=== PATIENT | male | born 1965 | race Caucasian/White ===

== ENCOUNTER 2018-10-31 17:43 | Emergency (ER) | payer OTHER ==
[~2018-10-31] VITALS: Ht 182.9 cm; Wt 127.0 kg
[~2018-10-31 17:43] MED LIST: DOXYCYCLINE 10100 MG PO; FLOMAX0.4 MG PO; HYDROCODONE-AP1 EAC6 PO; OSTERA TABLET1 EAC1 PO; POLYMYXIN B/TMP10 ML OP; TRUVADA1 EAC1 PO
[2018-10-31] MEDS ORDERED: PREP (17:51)
[2018-10-31 18:24] LABS: URINE BILIRUBIN NEGATIVE (Negative); URINE BLOOD NEGATIVE (Negative); URINE CLARITY CLEAR; URINE COLOR YELLOW; URINE GLUCOSE-RANDOM NEGATIVE (Negative); URINE KETONES NEGATIVE (Negative); URINE LEUKOCYTES-REFLEX NEGATIVE (Negative); URINE NITRITE-REFLEX NEGATIVE (Negative); URINE PROTEIN NEGATIVE (Negative); URINE SPECIFIC GRAVITY <= 1.005 (1.005-1.030); URINE UROBILINOGEN 0.2 E.U./dl (0.2-1.0)
[2018-10-31 18:30] LABS: ABSOLUTE BASOPHILS 0.1 thou/uL (0.0-0.2); ABSOLUTE EOSINOPHILS 0.4 thou/uL (0.0-0.7); ABSOLUTE LYMPHOCYTES 3.3 thou/uL (0.8-5.3); ABSOLUTE MONOCYTES 0.8 thou/uL (0.0-1.2); ABSOLUTE NEUTROPHILS 3.2 thou/uL (1.6-8.1); BASOPHILS 1.3 %; EOSINOPHILS 4.7 %; HEMATOCRIT 43.7 % (42.0-52.0); HEMOGLOBIN 14.9 gm/dL (14.0-18.0); LYMPHOCYTES 42.4 %; MCH 31.2 pg (26.0-34.0); MCHC 34.1 g/dL (28.0-37.0); MCV 91.5 fL (80.0-100.0); MONOCYTES 10.6 %; MPV 8.2 fl. (7.2-11.1); NUCLEATED RBCS 0 /100WBC; PLATELET COUNT* 205 thou/uL (150-400); RBC 4.78 mil/uL (4.50-6.00); RDW-CV 14.3 % (10.5-14.5); WBC 7.8 thou/uL (4.0-11.0)
[2018-10-31 18:43] VITALS: BP 123/78
[2018-10-31 18:43] LABS: ALBUMIN 3.2 g/dL (3.4-5.0); CALCIUM 8.9 mg/dL (8.5-10.1); CREATININE 1.2 mg/dL (0.6-1.3); TOTAL BILIRUBIN 0.3 mg/dL (<0.1-1.0); TOTAL PROTEIN 7.6 g/dL (6.4-8.2)
--- NOTE | 2018-11-01 13:00 | EKG ---
[place] [address] ELECTROCARDIOGRAM REPORT Name: YANICK QUEZADA Room: [facility]ENTSVirgen#: [id number] Admission: 10/31/18 Attend Phys: Discharge: 10/31/18 Date of : 67 Report #: [id number] THIS REPORT FOR: //name// [facility] ED Test Date: 2018-10-31 Test Time: 17:48:20 Pat Name: YANICK QUEZADA Department: Room: Gender: M Shop Lead: Yannick [place] : 1965 Requested By: Hamida Roberson Order Number: [id number] MD: Viral Lemon Measurements Intervals [place] Rate: 72 P: 53 MA: 150 QRS: -20 QRSD: 108 T: 35 QT: 398 QTc: 436 Interpretive Statements Sinus rhythm Borderline left axis deviation Compared to ECG 03/29/2016 14:40:30 no change Electronically Signed On 11-01-2018 13:00:34 CDT by Viral Lemon [email or web address] <ELECTRONICALLY SIGNED> By: Viral Lemon MD, [facility] 11/01/18 1300 D: [id number] Viral Lemon MD, FACC /EPI
== END 2018-10-31 18:45 | disposition left against medical advice (07) ==
LOC: M.ERS 17:43
PROVIDERS: Personal Emergency Response Attendant
DX: K62.5 Hemorrhage of anus and rectum (principal); R55 Syncope and collapse; N40.0 Benign prostatic hyperplasia without lower urinary tract symptoms; F17.210 Nicotine dependence, cigarettes, uncomplicated; Z85.07 Personal history of malignant neoplasm of pancreas; Z90.49 Acquired absence of other specified parts of digestive tract

== ENCOUNTER 2019-03-19 13:19 | Emergency (ER) | payer OTHER ==
[~2019-03-19] VITALS: Ht 182.9 cm; Wt 129.3 kg
[~2019-03-19 13:19] MED LIST changes: +PREP
[2019-03-19] MEDS ORDERED: LIPITOR10 MG PO (14:01)
[2019-03-19 14:14] LABS: CALCIUM 8.5 mg/dL (8.5-10.1); CREATININE 0.9 mg/dL (0.6-1.3); POTASSIUM 3.6 mmol/L (3.5-5.1)
[2019-03-19] MEDS ORDERED: FLEXERIL PO (14:24)
[2019-03-19] MEDS ORDERED: IBUPROFEN 800800 M1 PO (14:24)
[2019-03-19 14:37] VITALS: BP 123/62
== END 2019-03-19 14:38 | disposition home or self-care (01) ==
LOC: M.ERS 13:19
PROVIDERS: Emergency Medicine Emergency Medical Services
DX: M76.61 Achilles tendinitis, right leg (principal); F17.210 Nicotine dependence, cigarettes, uncomplicated; Z90.49 Acquired absence of other specified parts of digestive tract; Z98.890 Other specified postprocedural states; Z85.07 Personal history of malignant neoplasm of pancreas; Z88.6 Allergy status to analgesic agent; Z88.5 Allergy status to narcotic agent

== ENCOUNTER 2020-12-17 19:41 | Emergency (ER) | payer OTHER ==
[~2020-12-17] VITALS: Ht 182.9 cm; Wt 141.7 kg
[~2020-12-17 19:41] MED LIST changes: +FLEXERIL PO; +IBUPROFEN 800800 M1 PO; +LIPITOR10 MG PO
[2020-12-17] MEDS ORDERED: FLOMAX0.4 MG PO (19:57)
[2020-12-17 20:10] LABS: ABSOLUTE BASOPHILS 0.1 thou/uL (0.0-0.2); ABSOLUTE EOSINOPHILS 0.6 thou/uL (0.0-0.7); ABSOLUTE LYMPHOCYTES 3.9 thou/uL (0.8-5.3); ABSOLUTE MONOCYTES 1.3 thou/uL (0.0-1.2); ABSOLUTE NEUTROPHILS 4.5 thou/uL (1.6-8.1); BASOPHILS 0.8 %; EOSINOPHILS 5.5 %; HEMATOCRIT 41.9 % (42.0-52.0); HEMOGLOBIN 14.3 gm/dL (14.0-18.0); LYMPHOCYTES 37.6 %; MCH 31.7 pg (26.0-34.0); MCHC 34.1 g/dL (28.0-37.0); MCV 92.8 fL (80.0-100.0); MONOCYTES 12.6 %; MPV 8.3 fl. (7.2-11.1); NUCLEATED RBCS 0 /100WBC; PLATELET COUNT* 179 thou/uL (150-400); POLYS 43.5 %; RBC 4.51 mil/uL (4.50-6.00); RDW-CV 14.2 % (10.5-14.5); WBC 10.4 thou/uL (4.0-11.0)
[2020-12-17 20:19] LABS: CALCIUM 8.5 mg/dL (8.5-10.1); CREATININE 0.9 mg/dL (0.6-1.3)
[2020-12-17 20:23] LABS: MAGNESIUM 2.1 mg/dL (1.8-2.4); TOTAL BILIRUBIN 0.7 mg/dL (<0.1-1.0); TOTAL PROTEIN 7.9 g/dL (6.4-8.2)
[2020-12-17 22:06] VITALS: BP 123/70
--- NOTE | 2020-12-18 12:30 | EKG ---
[place] [address] ELECTROCARDIOGRAM REPORT Name: YANICK QUEZADA Room: [facility]#: [id number] Admission: 12/17/20 Attend Phys: Discharge: 12/17/20 Date of : 67 Date of Service: 12/17/201950 Report #: [id number] THIS REPORT FOR: //name// [facility] ED Test Date: 2020-12-17 Test Time: 19:51:01 Pat Name: YANICK TELLESUGHN Department: Room: Gender: Patroller: : 1965 Requested By: Aruna Dee Order Number: [id number] Reading MD: Andrea Hurtado Measurements Intervals [place] Rate: 86 P: 63 [place]: 153 QRS: -19 QRSD: 113 T: 54 QT: 413 QTc: 494 Interpretive Statements Sinus rhythm Borderline intraventricular conduction delay ST elev, probable normal early repol pattern Borderline prolonged QT interval Compared to ECG 10/31/2018 17:48:20 No significant interval change Electronically Signed On 12-18-2020 12:30:44 CDT by Andrea Hurtado [email or web address] <ELECTRONICALLY SIGNED> By: Andrea Hurtado MD, [facility] 12/18/20 1230 50 50 Andrea Hurtado MD, [facility] /EPI
== END 2020-12-17 22:06 | disposition home or self-care (01) ==
LOC: M.ERS 19:41
PROVIDERS: Emergency Medicine
DX: F10.129 Alcohol abuse with intoxication, unspecified (principal); Y90.8 Blood alcohol level of 240 mg/100 ml or more; R60.0 Localized edema; K74.60 Unspecified cirrhosis of liver; R10.13 Epigastric pain; R10.11 Right upper quadrant pain; F17.210 Nicotine dependence, cigarettes, uncomplicated; Z90.49 Acquired absence of other specified parts of digestive tract